=== PATIENT | male | born 1995 | race Caucasian/White ===

== ENCOUNTER 2017-12-03 13:12 | Emergency (ER) | payer BC ==
[~2017-12-03] VITALS: Ht 172.7 cm; Wt 75.0 kg
[2017-12-03 14:01] VITALS: BP 134/67; PULSE 93; RESP 16; TEMP 98.4; O2SAT 99
--- NOTE | 2017-12-03 15:39 | PD ---
HPI Chief Complaint: Foreign Body Time Seen by Provider: 15:03 Travel History International Travel<30 days: No Contact w/Intl Traveler<30days: No Traveled to known affect area: No History of Present Illness HPI This is a 22-year-old male here with a fish hook to his right hand 2 hours. He was fishing [place] the [employer] [place] when he accidentally hooked himself. He denies altered sensation in the hand. He has mild pain at the site of the puncture wound. Severity is moderate. No aggravating or relieving factors. PFSH Past Medical History Medical History: Denies Significant Hx Diminished Hearing: No Tetanus Vaccination: Unknown Influenza Vaccination: Yes ?: Not Social History Alcohol Use: Yes (twice a week) Tobacco Use: Yes (Dip) Substance Use: No Allergies-Medications (Allergen,Severity, Reaction): Coded Allergies: No Known Allergies (Unverified , 12/03/17) Review of Systems Except as stated in HPI: all other systems reviewed are Neg Physical Exam Narrative GENERAL: Alert well-appearing 22-year-old male SKIN: Warm and dry. HEAD: Normocephalic. EYES:No injection or drainage. NECK: Supple MUSCULOSKELETAL: No cyanosis, or edema. Right hand: 1 prong of a 3 prong lure embedded into the right hand volar aspect in the webspace between the thumb and index finger. No active bleeding. Patient can freely move all fingers. Normal sensation. Brisk cap refill. Data Data Last Documented VS Vital Signs Date Time Temp Pulse Resp B/P (MAP) Pulse Ox O2 Delivery O2 Flow Rate FiO2 12/03/17 14:01 98.4 93 16 134/67 (89) 99 Orders Orders Tetanus/Diphtheria Tox Adult (Tetanus/Di (12/03/17 15:45) Ed Discharge Order (12/03/17 15:39) MDM Medical Decision Making Medical Screen Exam Complete: Yes Emergency Medical Condition: Yes Differential Diagnosis Puncture wound, fishhook in the hand, wound infection Narrative Course 22-year-old male here with a fish hook in his right hand. The extremity is neurovascularly intact. Orange easily removed with push through method. The wound was thoroughly irrigated. He had saltwater exposure. He will be put on doxycycline as prophylactic antibiotic. Tetanus updated today Procedures Procedure Narrative Orange removal: Area was prepped with Betadine. Orange removed using push through method. Diagnosis Primary Impression: Orange injury to finger Qualified Codes: S69.91XA - Unspecified injury of right wrist, hand and finger (s), initial encounter Referrals: Primary Care Physician Additional Instructions: Cleansed the area daily with soap and water. Take the antibiotics as directed. Return to emergency department if he develops signs of infection which include fever, increasing redness, increasing pain Scripts Doxycycline Hyclate (Doxycycline Hyclate) 100 Mg Cap 100 MG PO BID for Infection for 7 Days, #14 CAP 0 Refills Prov: Jessica Martínez 12/03/17 Disposition: 01 DISCHARGE HOME Condition: Stable Jessica Martínez Dec 03, 2017 15:39
[2017-12-03] MEDS ORDERED: TETANUS/DIPHTHERIA TOXOID ADULT 0.5 ML VIAL IM ONE (15:45)
[2017-12-03] MEDS ORDERED: DOXY100C PO (15:55)
== END 2017-12-03 15:59 | disposition home or self-care (01) ==
LOC: PHEFT 13:12
DX: S61.441A Puncture wound with foreign body of right hand, initial encounter (principal); W45.8XXA Other foreign body or object entering through skin, initial encounter; Y93.89 Activity, other specified; Z23 Encounter for immunization
CPT/HCPCS: 10120; 90471; 90714